=== PATIENT | female | born 1980 | race Caucasian/White ===

== ENCOUNTER 2020-06-10 19:57 | Emergency (ER) | payer SELFPAY ==
[~2020-06-10] VITALS: Ht 154.9 cm; Wt 63.6 kg
[~2020-06-10 19:57] MED LIST: AMOX/K CLAV875 M1 PO; ANUCORT-HC25 MG RE; BACTRIM DS1 TAB OR; BACTRIM DS1 TAB PO; CEPHALEXIN500 MG PO; LIDOCAINE VISC20 ML EX; LORTAB 10-325 M1 TAB PO; LORTAB 5 OR; MEDDOSEPAK OR; NO HOME MEDS; PERCOCET 5/325M1 TAB OR; ROBITUSSIN AC10 ML PO; TORADOL OR; ULTRAM50 M1 PO; ULTRAM50 MG OR; ULTRAM50 MG PO
[2020-06-10] MEDS ORDERED: BACTRIM DS1 TAB PO (20:31)
[2020-06-10 20:56] VITALS: BP 142/89
== END 2020-06-10 20:56 | disposition home or self-care (01) | DRG 603 ==
LOC: ED 19:57
DX: L03.116 Cellulitis of left lower limb (principal); F17.210 Nicotine dependence, cigarettes, uncomplicated

== ENCOUNTER 2023-07-18 19:43 | Emergency (ER) | payer SELFPAY | END 2023-07-18 20:14 | disposition left against medical advice (07) | DRG 951 | LOC: ED 19:43 → LWOBS 20:14 | DX: Z53.21 Procedure and treatment not carried out due to patient leaving prior to being seen by health care provider (principal) ==